=== PATIENT | female | born 1965 | race Hispanic/Latino ===

== ENCOUNTER 2017-03-28 12:03 | Emergency (ER) | payer OTHER, SELFPAY | END 2017-03-28 13:36 | disposition home or self-care (01) | LOC: SCSER 12:03 | DX: S81.851A Open bite, right lower leg, initial encounter (principal); F32.9 Major depressive disorder, single episode, unspecified; W55.51XA Bitten by raccoon, initial encounter | CPT/HCPCS: 90375; 90471; 96372 ==